=== PATIENT | female | born 1950 | race Caucasian/White ===

== ENCOUNTER → 2019-08-09 | Outpatient (CLI) | payer MEDICARE, OTHER ==
[~2019-08-09] MED LIST: ATEN25TA PO; DILT240C2 PO; FLUT12HF2 INH; HYDR25TA6 PO; IRBE300T40 PO; MEDR2.5T PO; MONT5TAB6 PO; OMEP-110 PO; RIVA20TA PO; WARF4TAB PO
== END | disposition home or self-care (01) ==
LOC: CFH 14:29
PROVIDERS: ATTEND Internal Medicine Cardiovascular Disease
DX: I08.0 Rheumatic disorders of both mitral and aortic valves (principal); I48.0 Paroxysmal atrial fibrillation; R06.00 Dyspnea, unspecified
CPT/HCPCS: 93306

== ENCOUNTER → 2020-12-04 | Outpatient (CLI) | payer MEDICARE ==
[~2020-12-04] MED LIST changes: +ALBU8.5H8 INH; +AMIO100T4 PO; +ESTR1TAB15 PO; +FLUT1DIS5 IH; +HYDR-3248 PO; +MAGN400T9 PO; +METO25TA91 PO; +MONT10TA6 PO; +NORE5TAB PO; +OMEP40CA8 PO; +PSYL1PAC9 PO; +SPIR25TA5 PO; +VALS40TA2 PO; +testosterone cream TD
[2020-12-04 14:48] LABS: CHLORIDE 103 mmol/L (98-107)
[2020-12-04 14:56] LABS: ALANINE AMINOTRANSFERASE 24 U/L (12-78); ALBUMIN 3.5 g/dL (3.4-5.0); ALKALINE PHOSPHATASE 52 U/L (45-117); ANION GAP 5 mmol/L (5-15); BILIRUBIN,TOTAL 0.5 mg/dL (0.2-1.0); CREATININE 0.77 mg/dL (0.55-1.02); TOTAL PROTEIN 6.6 g/dL (6.4-8.2)
== END | disposition home or self-care (01) ==
LOC: STAR 13:27
PROVIDERS: ATTEND Obstetrics & Gynecology Female Pelvic Medicine and Reconstructive Surgery
DX: Z01.818 Encounter for other preprocedural examination (principal); N95.0 Postmenopausal bleeding; D21.9 Benign neoplasm of connective and other soft tissue, unspecified; R10.2 Pelvic and perineal pain; I49.1 Atrial premature depolarization; I49.3 Ventricular premature depolarization; Z20.822 Contact with and (suspected) exposure to COVID-19
CPT/HCPCS: 36415; 80053; 93005; U0003; U0005

== ENCOUNTER 2020-12-11 07:23 | Day surgery (SDC) | payer MEDICARE ==
[~2020-12-11] VITALS: Ht 167.6 cm; Wt 85.3 kg
[2020-12-11 08:22] VITALS: BP 138/84
[2020-12-11] MEDS ORDERED: CHLORHEXIDINE 15 ML UDC PO ONE (08:30)
[2020-12-11] MEDS ORDERED: LACTATED RINGERS 1,000 ML IV SCH ×2 (08:30→11:30)
[2020-12-11] MEDS ORDERED: CHLORHEXIDINE 15 ML UDC ONE (08:31)
[2020-12-11] MEDS ORDERED: FLUORESCEIN SODIUM 500 MG/5 ML ONE (08:57)
[2020-12-11] MEDS ORDERED: EPINEPHRINE 1 MG/ML, 1ML ONE (08:57)
[2020-12-11] MEDS ORDERED: BUPIVACAINE/PF 0.25% ONE (08:57)
[2020-12-11] MEDS ORDERED: MIDAZOLAM 1 MG/ML, 2ML ONE (09:12)
[2020-12-11] MEDS ORDERED: FENTANYL PF 250 MCG/5ML ONE (09:12)
[2020-12-11] MEDS ORDERED: ONDANSETRON 2MG/ML, 2ML IVPush PRN ×2 (09:30→11:30)
[2020-12-11] MEDS ORDERED: MEPERIDINE/PF 25MG/0.5ML IVPush PRN (09:30)
[2020-12-11] MEDS ORDERED: OXYcodone 5 MG/5 ML ORAL.SOL UDC PO PRN (09:30)
[2020-12-11] MEDS ORDERED: ACETAMINOPHEN 325 MG TABLET PO PRN (09:30)
[2020-12-11] MEDS ORDERED: hydrALAzine 20 MG/ML, 1ML IV PRN (09:30)
[2020-12-11] MEDS ORDERED: LABETALOL 5MG/ML, 20ML IV PRN (09:30)
[2020-12-11] MEDS ORDERED: ALBUTEROL/IPRATROPIUM 2.5MG/0.5MG, 3 ML NPPB PRN (09:30)
[2020-12-11] MEDS ORDERED: HYDROmorphone 1 MG/ML, 1ML INJ IVPush PRN (09:30)
[2020-12-11] MEDS ORDERED: DIAZEPAM 5 MG/ML, 2ML IVPush PRN (09:30)
[2020-12-11] MEDS ORDERED: BUPIVACAINE/PF-EPI 0.25% 1:200K INFIL ONE (09:36)
[2020-12-11] MEDS ORDERED: NEOSTIGMINE 1 MG/ML, 10ML ONE (10:55)
[2020-12-11] MEDS ORDERED: GLYCOPYRROLATE 0.2MG/1ML, 5ML ONE (10:55)
[2020-12-11] MEDS ORDERED: PROPOFOL 10 MG/ML, 20ML ONE (10:55)
[2020-12-11] MEDS ORDERED: ROCURONIUM 10MG/ML,5ML ONE ×2 (10:55→10:56)
[2020-12-11] MEDS ORDERED: DEXAMETHASONE 4 MG/ML, 1ML ONE ×2 (10:56)
[2020-12-11] MEDS ORDERED: LIDOCAINE-MPF 2% ,5ML ONE (10:56)
[2020-12-11] MEDS ORDERED: ONDANSETRON 2MG/ML, 2ML ONE (10:56)
[2020-12-11] MEDS ORDERED: CEFAZOLIN 1,000 MG ONE ×2 (10:56)
[2020-12-11] MEDS ORDERED: FENTANYL PF 100 MCG/2ML ONE (11:18)
[2020-12-11] MEDS ORDERED: OXYcodone 5 MG/5 ML ORAL.SOL UDC ONE ×2 (11:18→11:21)
[2020-12-11] MEDS ORDERED: ACETAMINOPHEN 650 MG/20.3 ML UDC ONE (11:20)
[2020-12-11] MEDS: FENTANYL PF 100 MCG/2ML IV PRN ×2 (11:25→11:58)
[2020-12-11] MEDS ORDERED: PROMETHAZINE 25 MG SUPP PR ONE ×2 (11:30→11:42)
[2020-12-11] MEDS ORDERED: IBUPROFEN 600 MG TABLET PO PRN (11:30)
[2020-12-11] MEDS ORDERED: HYDROcodone/APAP 5/325 TABLET PO PRN (11:30)
== END 2020-12-11 14:30 | disposition home or self-care (01) ==
LOC: OUT 07:23
PROVIDERS: ATTEND Obstetrics & Gynecology Female Pelvic Medicine and Reconstructive Surgery
DX: N95.0 Postmenopausal bleeding (principal); D25.9 Leiomyoma of uterus, unspecified; N83.8 Other noninflammatory disorders of ovary, fallopian tube and broad ligament; N85.8 Other specified noninflammatory disorders of uterus; I10 Essential (primary) hypertension; I48.91 Unspecified atrial fibrillation; J45.909 Unspecified asthma, uncomplicated; G47.33 Obstructive sleep apnea (adult) (pediatric); M19.90 Unspecified osteoarthritis, unspecified site; Z79.01 Long term (current) use of anticoagulants; Z79.891 Long term (current) use of opiate analgesic; Z79.899 Other long term (current) drug therapy; Z87.891 Personal history of nicotine dependence; Z88.0 Allergy status to penicillin; Z88.2 Allergy status to sulfonamides; Z88.7 Allergy status to serum and vaccine; Z98.890 Other specified postprocedural states
CPT/HCPCS: 58552; 88307; J0171; J0690; J1100; J2250; J2405; J2704; J2710; J3010; J7120